=== PATIENT | male | born 1925 | race Caucasian/White ===

== ENCOUNTER 2017-06-15 15:50 | Emergency (ER) | payer MEDICARE, BC ==
[~2017-06-15] VITALS: Ht 172.7 cm; Wt 86.2 kg
[2017-06-15] MEDS ORDERED: TRAVATAN Z5 ML OPTH (16:12)
[2017-06-15] MEDS ORDERED: DOXAZOSIN MESYLA2 MG PO (16:12)
[2017-06-15] MEDS ORDERED: AMLODIPINE BESY10 MG PO (16:12)
[2017-06-15] MEDS ORDERED: LOSARTAN POTASS25 MG PO (16:12)
[2017-06-15] MEDS ORDERED: RABEPRAZOLE SOD20 MG PO (16:13)
[2017-06-15] MEDS ORDERED: COSOPT EYE DROP10 ML OD (16:13)
[2017-06-15] MEDS ORDERED: LACTULOSE20 GM/30 M PO (18:01)
[2017-06-15] MEDS ORDERED: AUGMENTIN 875-1 EACH PO (18:01)
[2017-06-15] MEDS ORDERED: FLAGYL500 MG PO (18:04)
[2017-06-15] MEDS ORDERED: VENTOLIN HFA18 GM INH (18:04)
== END 2017-06-15 18:38 | disposition home or self-care (01) ==
LOC: ED 15:50
DX: K57.30 Diverticulosis of large intestine without perforation or abscess without bleeding (principal); I10 Essential (primary) hypertension; Z90.89 Acquired absence of other organs; Z79.899 Other long term (current) drug therapy
CPT/HCPCS: 74176; 80053; 81001; 83605; 83690; 85025; 96374; 96375; 99284; J2270; J2405